=== PATIENT | male | born 1960 | race Caucasian/White ===

== ENCOUNTER 2018-05-09 08:27 | Emergency (ER) | payer OTHER, BC ==
[2018-05-09] MEDS ORDERED: Ondansetron 4 MG/2 ML SDV IVPUSH ONE (08:36)
[2018-05-09] MEDS ORDERED: HYDROmorphone 1 MG/ML Syringe IVPUSH ONE (08:36)
--- NOTE | 2018-05-09 08:41 | EDM.PDOC ---
ED HPI GENERAL MEDICAL PROBLEM - General Chief Complaint: Trauma Stated Complaint: RIB INJURY Time Seen by Provider: 05/09/18 08:36 Source of Information: Reports: Patient History Limitations: Reports: No Limitations - History of Present Illness INITIAL COMMENTS - FREE TEXT/NARRATIVE: 57-year-old male presents to the ED after falling from a ladder probably 3-4 feet onto a hard surface. States he landed hard on his right ribs on concrete service and has pain along his mid lateral anterior chest wall. Every breath hurts. He banged up the back of his elbow on the concrete when he fell in his right hip. Denies hitting his head or hurting his neck at this time. Injury occurred about 0730 hrs. this morning. Patient states knocked the wind out of him. Continues to have pain with every breath right anterior lateral chest particularly ribs 4,5 and 6 level. He can walk with a limp. Onset: Today Onset Date: 05/09/18 Onset Time: 07:30 Duration: Minutes: Location: Reports: Chest (Right lateral chest wall), Pelvis (Right hip pelvis area over the greater trochanter of his hip.) Quality: Reports: Ache, Other Severity: Moderate (Sharp stabbing pleuritic chest pain with every breath.) Improves with: Reports: Rest Worsens with: Reports: Other, Movement Context: Reports: Trauma (Fell 3-4 feet off of a ladder this morning landing on concrete surface on his right lateral chest wall. Injury to his right elbow with abrasion to the). Denies: Activity, Exercise, Lifting, Sick Contact Associated Symptoms: Reports: Chest Pain. Denies: Confusion, Cough, cough w sputum, Diaphoresis, Fever/Chills, Headaches, Loss of Appetite, Malaise, Nausea/ Vomiting, Rash, Seizure, Shortness of Breath, Syncope, Weakness Treatments [employer]: Reports: Other (see below) ( olecranon process and contusion to the right greater trochanteric process. none. ) Right Chest Pain Score (Numeric/FACES): 8 - Related Data Allergies Allergy/AdvReac Type Severity Reaction Status Date / Time No Known Allergies Allergy Verified 05/09/18 09:10 Home Meds: Home Meds oxyCODONE HCl/Acetaminophen [Percocet 5-325 mg Tablet] 1 - 2 each PO Q4H PRN # 24 tablet 05/09/18 [Rx] Social & Family History - Living Situation & Occupation Occupation: Employed Review of Systems - Review of Systems Review Of Systems: See Below Constitutional: Reports: No Symptoms Eyes: Reports: No Symptoms Ears: Reports: No Symptoms Nose: Reports: No Symptoms Mouth/Throat: Reports: No Symptoms Respiratory: Reports: Cough Cardiovascular: Reports: No Symptoms GI/Abdominal: Reports: No Symptoms Genitourinary: Reports: No Symptoms Musculoskeletal: Reports: Back Pain Skin: Reports: No Symptoms Neurological: Reports: No Symptoms Psychiatric: Reports: No Symptoms ED EXAM, GENERAL - Physical Exam Exam: See Below Exam Limited By: No Limitations General Appearance: Alert, WD/WN, Moderate Distress, Other (Operation collar obviously hurting bad.) Eye Exam: Bilateral Eye: Normal Inspection Neck: Normal Inspection, Supple, Non-Tender, Full Range of Motion. No: Lymphadenopathy (L), Lymphadenopathy (R) Respiratory/Chest: Lungs Clear, Normal Breath Sounds, Respiratory Distress ( Mild tachypnea), Other (Chest wall tenderness right anterior lateral ribs for 5 and 6. No subcutaneous emphysema no crepitus palpable.) Cardiovascular: Normal Peripheral Pulses, Regular Rate, Rhythm, No Edema, No Gallop, No Murmur, No Rub GI/Abdominal: Normal Bowel Sounds, Soft, Non-Tender, No Organomegaly, Pelvis Stable, Rebound Back Exam: Normal Inspection, Full Range of Motion. No: CVA Tenderness (L), CVA Tenderness (R) Extremities: Other (HEENT and tenderness over the right greater trochanter of his hip area. Proximal thigh is somewhat tender without hematoma formation yet. He does have an abrasion to his right olecranon process of his elbow. This is about 1 cm in size.) Neurological: Alert, Oriented, CN II-XII Intact, Normal Cognition Psychiatric: Normal Affect, Normal Mood Skin Exam: Warm, Dry, Intact, Normal Color, No Rash Course - Vital Signs Last Recorded V/S: Last Vital Signs Temp 36.1 C 05/09/18 08:30 Pulse 78 05/09/18 10:20 Resp 16 05/09/18 10:20 BP 119/78 05/09/18 10:20 Pulse Ox 95 05/09/18 10:20 - Orders/Labs/Meds Meds: Medications Discontinued Medications Generic Name Dose Route Start Last Admin Trade Name Freq PRN Reason Stop Dose Admin Hydromorphone HCl 1 mg 05/09/18 08:36 05/09/18 08:53 Dilaudid IVPUSH 05/09/18 08:37 1 mg ONETIME ONE Administration Sodium Chloride 1,000 mls @ 150 mls/hr 05/09/18 08:45 05/09/18 08:53 Normal Saline IV 150 mls/hr ASDIRECTED REYES Administration Ondansetron HCl 4 mg 05/09/18 08:36 05/09/18 08:53 Zofran IVPUSH 05/09/18 08:37 4 mg ONETIME ONE Administration - Radiology Interpretation Free Text/Narrative:: 57-year-old male presents the ED after falling from a ladder in the workplace this morning. He estimates he fell 3-4 feet from a ladder landing hard onto concrete surface on his right lateral chest. Denies injuring his head or neck. States knocked the wind out of him has persistent pain in ribs 456 and 7 on the right lateral chest wall subcutaneous emphysema or crepitus palpable. Breath hurts over suspicious for a undisplaced rib fracture or 2. Other pain is in his right hip over the greater trochanteric process and proximal thigh. Patient is to be Musca skeletal contusion versus fracture. He has an abrasion over his right elbow without evidence of fracture of the olecranon or ulna. Chest x-ray with rib detail on the right side. X-ray one view of the pelvis. IV will be normal saline 150 mils per hour. Will be given Dilaudid 1 mg IV for pain relief with Zofran 4 mg IV. - Re-Assessments/Exams Free Text/Narrative Re-Assessment/Exam: 05/09/18 09:59 chest x-ray reveals an hairline fracture of the fifth rib posterior laterally. Muscle thorax. No fractures were identified. This report fracture is very difficult to appreciate. X-ray of the pelvis is normal. Patient has contused his right hip. On reexamination he has pain in his right shoulder and biceps of his arm. However the bone is okay this is more soft tissue muscular injury. Semaj wrap to support his chest wall. Percocet tabs one or 2 every 4-6 hours for pain relie This will be for the first 4-5 days and after this Motrin 600 mg every 6 hours. Advised follow-up with his personal care physician in 3 weeks time to see if he is able to return to the workplace. Advise with the nature of his work with on ladders and lifting above his head most the time he will have to build to do a pushup or 2 without any pain in his chest before he could return to work. Departure - Departure Time of Disposition: 10:01 Disposition: Home, Self-Care 01 Condition: Fair Clinical Impression: Contusion of right upper arm, initial encounter, Abrasion of right elbow, initial encounter Fractured rib Qualifiers: Encounter type: initial encounter Rib fracture type: single rib Fracture type: closed Laterality: right Qualified Code(s): S22.31XA - Fracture of one rib, right side, initial encounter for closed fracture Contusion of right hip and thigh Qualifiers: Encounter type: initial encounter Qualified Code(s): S70.01XA - Contusion of right hip, initial encounter - Discharge Information *PRESCRIPTION DRUG MONITORING PROGRAM REVIEWED*: Not Applicable *COPY OF PRESCRIPTION DRUG MONITORING REPORT IN PATIENT KIMI: Not Applicable Prescriptions: oxyCODONE HCl/Acetaminophen [Percocet 5-325 mg Tablet] 1 - 2 each PO Q4H PRN # 24 tablet PRN Reason: pain relief. Instructions: Contusion, [id number], Rib Fracture, [id number] Referrals: PCP,Not In Area [Primary Care Provider] - Forms: ED Department Discharge, ED Return to Work/School Form Additional Instructions: Evaluation the emergency room today in regards to work related injury after falling from a ladder. Estimated fall 3-4 feet onto a concrete surface landing on your right side. You have suffered contusions to your right arm and right hip and upper thigh. Abrasion to the right elbow which will need to be cleansed daily with soap and water. Showering is okay. Then apply topical antibiotic such as bacitracin or Polysporin to the area and a bandage if necessary to keep clean and from clothing rubbing on it. X-rays of your chest reveal one fractured rib I believe #5. This is posterior laterally difficult to appreciate on x-ray. Due to the underlying lung identified. Fractured ribs take on average 3-6 weeks to heal 3 weeks there usually is mild pain at the site by 6 weeks it is solid.. The first 10 days are the worst. Will not be able to lie flat in bed measuring up to push up with her right hand due to pain. Six-inch Semaj wrap on around the chest wall for support on during the day and may leave on overnight. He coughed rogelio. This is useful for the first 10 or 12 days and then after that is unlikely to be of any use. Percocet tabs 09/02/24 one or 2 tabs every 4-6 hours necessary for pain relief. He will probably need pain medicine for the first 4-5 days. This may start supplement with Motrin 600 mg every 6 hours to relieve pain. While on the pain pills I would suggest being on a stool softener to prevent constipation. Suggest MiraLAX powder 1 packet or 17 g once daily well on the strong pain medication. Suggest follow-up with your personal care physician in about 3 weeks' time to see if you how your healing up and when you might be able to return to work. Note given to excuse her from work for minimal of 3 weeks and it may be up to 45 weeks before you're able to return to the type of work you do.
[2018-05-09] MEDS ORDERED: Sodium Chloride 0.9% 1,000 ML IV SCH (08:45)
--- NOTE | 2018-05-09 10:39 | CR ---
Chest and right ribs: Frontal view of the chest was obtained as well as two views of the right ribs. Slightly limited inspiratory study is noted. Within this limitation, lungs are felt to show no acute parenchymal change. Heart size and mediastinum are normal. No discrete fracture or other right sided rib abnormality is appreciated. Impression: 1. Nothing acute seen on frontal chest x-ray. No discrete right sided rib abnormality is seen. Diagnostic code #2
--- NOTE | 2018-05-09 10:39 | CR ---
Pelvis: AP view of the pelvis was obtained. Comparison: No prior pelvis exam. Mild joint space narrowing is noted within the right hip. Joint space within the left hip is preserved. Sacroiliac joints are within normal limits. No fracture or other abnormality is seen. Incidental vasectomy surgical clips are noted. Impression: 1. Incidental findings. Nothing acute is appreciated. Diagnostic code #2
== END 2018-05-09 10:27 | disposition home or self-care (01) ==
LOC: JD.ED 08:27
DX: S22.31XA Fracture of one rib, right side, initial encounter for closed fracture (principal); S70.01XA Contusion of right hip, initial encounter; S40.021A Contusion of right upper arm, initial encounter; S50.311A Abrasion of right elbow, initial encounter; W11.XXXA Fall on and from ladder, initial encounter
CPT/HCPCS: 71101; 72170; 96361; 96374; 96375; 99284; J1170; J2405; J7040